=== PATIENT | male | born 1960 | race Caucasian/White ===

== ENCOUNTER 2021-07-19 20:05 | Emergency (ER) | payer SELFPAY ==
[~2021-07-19] VITALS: Ht 185.4 cm; Wt 90.7 kg
[2021-07-19] MEDS ORDERED: cloNIDine HCL 0.1 MG TAB PO ONE (21:00)
[2021-07-19 22:39] VITALS: BP 105/65
== END 2021-07-19 22:39 ==
LOC: ER 20:08
DX: F17.210 Nicotine dependence, cigarettes, uncomplicated; F15.10 Other stimulant abuse, uncomplicated; I10 Essential (primary) hypertension